=== PATIENT | male | born 1950 | race Caucasian/White ===

== ENCOUNTER 2017-02-19 12:27 | Emergency (ER) | payer MEDICARE ==
[2017-02-19] MEDS ORDERED: Aspirin Low Dose CHEW TAB* 81 MG PO ONE (12:51)
[2017-02-19 13:16] LABS: Hematocrit 42 % (42-52); Hemoglobin 14.2 g/dl (14.0-18.0); Mean Corpuscular HGB Conc 34 g/dl (31-36); Mean Corpuscular Hemoglobin 29 pg (27-31); Mean Corpuscular Volume 87 fL (80-94); Mean Platelet Volume 9 um3 (7.4-10.4); Red Blood Count 4.88 10^6/ul (4.0-5.4); Red Cell Distribution Width 14 % (10.5-15); White Blood Count 6.8 10^3/ul (3.5-10.8)
--- NOTE | 2017-02-19 13:22 | RAD ---
INDICATION: Chest pain. COMPARISON: Comparison is made with a prior study from June 04, 2013. TECHNIQUE: A portable view of the chest was obtained. FINDINGS: Cardiac and mediastinal contours appear to be within normal limits. The lungs are clear. No pleural effusion is seen. IMPRESSION: NO EVIDENCE FOR ACUTE DISEASE.
[2017-02-19 13:41] LABS: Albumin 3.9 g/dL (3.2-5.2); BUN/Creatinine Ratio 13.7 (8-20); Calcium 9.1 mg/dL (8.6-10.3); EGFR Non-African American 73.1 (>60); Globulin 2.6 g/dL (2-4); Magnesium 1.9 mg/dL (1.9-2.7); Potassium 3.8 mmol/L (3.5-5.0); Total Bilirubin 0.5 mg/dL (0.2-1.0); Total Protein 6.5 g/dL (6.4-8.9)
[2017-02-19 16:14] VITALS: BP 129/70
--- NOTE | 2017-02-19 22:46 | ED ---
Federico Griffin Benjamin, scribed for Mario Elmore MD on 02/19/17 at 1454 . HPI Chest Pain - HPI Summary HPI Summary: 66yo male c/o chest tightness for couple of weeks. Pt states that tightness comes on every now and then, but quite regularly. Dr. Ocampo, pts PCP recommended pt to come to ED after noticing PVCs on his EKG. Pt says he gets tired frequently. Pt didnt notice anything that triggers his chest tightness. Hx of peripheral neuropathy. FHx of [place]. Hx of HTN and hypercholesterolemia. - History of Current Complaint Chief Complaint: EDChestPainROMI Time Seen by Provider: 02/19/17 13:20 Hx Obtained From: Patient Onset/Duration: Started Weeks Ago, Still Present Timing: Intermittent Initial Severity: Mild Current Severity: Mild Pain Intensity: 0 Chest Pain Location: Diffuse Chest Pain Radiates: No Character: Tightness Aggravating Factor(s): Nothing Alleviating Factor(s): Nothing Associated Signs and Symptoms: Positive: Other: - fatigue - Allergy/Home Medications Allergies/Adverse Reactions: Allergies Allergy/AdvReac Type Severity Reaction Status Date / Time Penicillins Allergy Severe Hives Verified 02/19/17 12:29 Prochlorperazine Allergy Unknown Anaphylatic Verified 02/19/17 12:29 [From Compazine] Shock Home Medications: Home Medications [place]-3 Fatty Acids (Nf) [Fish Oil (NF)] 1,000 mg PO DAILY 02/19/17 [History Confirmed 02/19/17] Omeprazole CAP* [Prilosec CAP* 20 MG] 20 mg PO DAILY 02/19/17 [History Confirmed 02/19/17] Vitamin B Complex CAP* [B Complex CAP*] 1 cap PO DAILY 02/19/17 [History Confirmed 02/19/17] PMH/Surg Hx/FS Hx/Imm Hx Endocrine/Hematology History: Denies: Hx Diabetes Cardiovascular History: Reports: Hx Hypercholesterolemia - DYSLIPIDEMIA, Hx Hypertension, Other Cardiovascular Problems/Disorders - JES SYNDROME Denies: Hx Pacemaker/ICD Respiratory History: Denies: Hx Asthma, Hx Chronic Obstructive Pulmonary Disease (COPD) History: Reports: Other Problems/Disorders - MACROHEMATURIA Denies: Hx Dialysis, Hx Renal Disease Musculoskeletal History: Reports: Hx Back Problems - LUMBAR LAMINECTOMY Sensory History: Reports: Hx Contacts or Glasses Denies: Hx Hearing Aid Opthamlomology History: Reports: Hx Contacts or Glasses Neurological History: Reports: Other Neuro Impairments/Disorders - LUMBAR LAMINECTOMY WITH LOWER EXTREMITY NEUROPATHY Psychiatric History: Reports: Hx Depression Denies: Hx Anxiety, Hx Attention Deficit Hyperactivity Disorder, Hx Eating Disorder, Hx Panic Disorder, Hx Post Traumatic Stress Disorder, Hx Inpatient Treatment, Hx Community Mental Health Tx, Hx Schizophrenia, Hx Bipolar Disorder , Hx Suicide Attempt, Hx of Violent Episodes Against Others, Hx Substance Abuse , Other Psychiatric Issues/Disorders - Surgical History Surgery Procedure, Year, and Place: PLASTIC SURGERY LEFT HAND, LAMINECTOMY LOW BACK 2009, [facility] 50+ YEARS AGO Hx Anesthesia Reactions: No - Immunization History Date of Tetanus Vaccine: Up to date Date of Influenza Vaccine: None in last years Infectious Disease History: Yes Infectious Disease History: Denies: Traveled Outside the [place] in Last 30 Days - Family History Known Family History: Positive: Cardiac Disease - [place] Negative: Diabetes - Social History Occupation: Unemployed Lives: With Family Substance Use Type: Reports: Marijuana Review of Systems Constitutional: Negative Eyes: Negative ENT: Negative Positive: Other - chest tightness Respiratory: Negative Gastrointestinal: Negative Genitourinary: Negative Musculoskeletal: Negative Skin: Negative Neurological: Negative Psychological: Normal All Other Systems Reviewed And Are Negative: Yes Physical Exam Triage Information Reviewed: Yes Vital Signs On Initial Exam: Initial Vitals Temp Pulse Resp BP Pulse Ox 96.9 F 66 16 142/69 100 02/19/17 12:29 02/19/17 12:29 02/19/17 12:29 02/19/17 12:29 02/19/17 12:29 Vital Signs Reviewed: Yes Appearance: Positive: Well-Appearing, No Pain Distress, Well-Nourished Skin: Positive: Warm, Skin Color Reflects Adequate Perfusion, Dry Head/Face: Positive: Normal Head/Face Inspection Eyes: Positive: EOMI, MARISA ENT: Positive: Normal ENT inspection, Hearing grossly normal, Pharynx normal, TMs normal Neck: Positive: Supple, Nontender Respiratory/Lung Sounds: Positive: Clear to Auscultation, Breath Sounds Present Cardiovascular: Positive: IRR Abdomen Description: Positive: Nontender, No Organomegaly, Soft Bowel Sounds: Positive: Present Musculoskeletal: Positive: Normal, Strength/ROM Intact Neurological: Positive: Sensory/Motor Intact, Alert, Oriented to Person Place, Time, CN Intact II-III Psychiatric: Positive: Affect/Mood Appropriate Diagnostics - Vital Signs Vital Signs Temp Pulse Resp BP Pulse Ox 02/19/17 12:29 96.9 F 66 16 142/69 100 - Laboratory Lab Results: Lab Results 02/19/17 02/19/17 02/19/17 Range/Units 13:05 13:05 13:05 WBC 6.8 (3.5-10.8) 10^3/ul RBC 4.88 (4.0-5.4) 10^6/ul Hgb 14.2 (14.0-18.0) g/dl Hct 42 (42-52) % MCV 87 (80-94) fL MCH 29 (27-31) pg MCHC 34 (31-36) g/dl RDW 14 (10.5-15) % Plt Count 196 (150-450) 10^3/ul MPV 9 (7.4-10.4) um3 Neut % (Auto) 61.1 (38-83) % Lymph % (Auto) 22.7 L (25-47) % [place] % (Auto) 11.4 H (1-9) % Eos % (Auto) 3.4 (0-6) % Baso % (Auto) 1.4 (0-2) % Absolute Neuts (auto) 4.2 (1.5-7.7) 10^3/ul Absolute Lymphs (auto) 1.5 (1.0-4.8) 10^3/ul Absolute Monos (auto) 0.8 (0-0.8) 10^3/ul Absolute Eos (auto) 0.2 (0-0.6) 10^3/ul Absolute Basos (auto) 0.1 (0-0.2) 10^3/ul Absolute Nucleated RBC 0 10^3/ul Nucleated RBC % 0 INR (Anticoag Therapy) 1.07 (0.89-1.11) Sodium 127 L (133-145) mmol/L Potassium 3.8 (3.5-5.0) mmol/L Chloride 96 L (101-111) mmol/L Carbon Dioxide 24 (22-32) mmol/L Anion Gap 7 (2-11) mmol/L BUN 14 (6-24) mg/dL Creatinine 1.02 (0.67-1.17) mg/dL Est GFR ( Amer) 94.0 (>60) Est GFR (Non-Af Amer) 73.1 (>60) BUN/Creatinine Ratio 13.7 (8-20) Glucose 88 (70-100) mg/dL Lactic Acid (0.5-2.0) mmol/L Calcium 9.1 (8.6-10.3) mg/dL Magnesium 1.9 (1.9-2.7) mg/dL Total Bilirubin 0.50 (0.2-1.0) mg/dL AST 25 (13-39) U/L ALT 14 (7-52) U/L Alkaline Phosphatase 48 (34-104) U/L Troponin I 0.00 (<0.04) ng/mL B-Natriuretic Peptide ( - 100) pg/mL Total Protein 6.5 (6.4-8.9) g/dL Albumin 3.9 (3.2-5.2) g/dL Globulin 2.6 (2-4) g/dL Albumin/Globulin Ratio 1.5 (1-3) 02/19/17 02/19/17 Range/Units 13:05 13:05 WBC (3.5-10.8) 10^3/ul RBC (4.0-5.4) 10^6/ul Hgb (14.0-18.0) g/dl Hct (42-52) % MCV (80-94) fL MCH (27-31) pg MCHC (31-36) g/dl RDW (10.5-15) % Plt Count (150-450) 10^3/ul MPV (7.4-10.4) um3 Neut % (Auto) (38-83) % Lymph % (Auto) (25-47) % [place] % (Auto) (1-9) % Eos % (Auto) (0-6) % Baso % (Auto) (0-2) % Absolute Neuts (auto) (1.5-7.7) 10^3/ul Absolute Lymphs (auto) (1.0-4.8) 10^3/ul Absolute Monos (auto) (0-0.8) 10^3/ul Absolute Eos (auto) (0-0.6) 10^3/ul Absolute Basos (auto) (0-0.2) 10^3/ul Absolute Nucleated RBC 10^3/ul Nucleated RBC % INR (Anticoag Therapy) (0.89-1.11) Sodium (133-145) mmol/L Potassium (3.5-5.0) mmol/L Chloride (101-111) mmol/L Carbon Dioxide (22-32) mmol/L Anion Gap (2-11) mmol/L BUN (6-24) mg/dL Creatinine (0.67-1.17) mg/dL Est GFR ( Amer) (>60) Est GFR (Non-Af Amer) (>60) BUN/Creatinine Ratio (8-20) Glucose (70-100) mg/dL Lactic Acid 1.1 (0.5-2.0) mmol/L Calcium (8.6-10.3) mg/dL Magnesium (1.9-2.7) mg/dL Total Bilirubin (0.2-1.0) mg/dL AST (13-39) U/L ALT (7-52) U/L Alkaline Phosphatase (34-104) U/L Troponin I (<0.04) ng/mL B-Natriuretic Peptide 18 ( - 100) pg/mL Total Protein (6.4-8.9) g/dL Albumin (3.2-5.2) g/dL Globulin (2-4) g/dL Albumin/Globulin Ratio (1-3) Result Diagrams: 02/19/17 13:05 02/19/17 13:05 Lab Statement: Any lab studies that have been ordered have been reviewed, and results considered in the medical decision making process. - Radiology CXR Xray Interpretation: No Acute Changes Radiology Interpretation Completed By: Radiologist - EKG 1238 Cardiac Rate: NL - 84bpm EKG Rhythm: Sinus Rhythm Ectopy: PVCs - multifocal PVCs EKG Interpretation: bigeminy Chest Pain Course/Dx - Course Course Of Treatment: Drs. Bullard, Antoine and myself all wanted (and advised) Mr. Ledezma to stay in the hospital for a stress test because of his symptoms, risk factors and bigeminy. He was adamant about going home and understood the risks. [facility] will try to get him an outpatient stress MARY and he will return if he worsens. - Diagnoses Provider Diagnoses: Chest pain, Bigeminal rhythm - Provider Notifications Discussed Care Of Patient With: Dr. Bullard (cardio) @[phone]. DR. Schultz ( Hospitalist) @[id number]. Discharge - Discharge Plan Condition: Stable Disposition: HOME Patient Education Materials: Premature Ventricular Contractions (ED) Referrals: Lola Ocampo MD [Primary Care Provider] - Additional Instructions: FOLLOW UP WITH [facility] TOMORROW FOR A STRESS TEST. The documentation as recorded by the Federico mcdonald Benjamin accurately reflects the service I personally performed and the decisions made by me, Mario Elmore MD.
== END 2017-02-19 16:09 | disposition home or self-care (01) ==
LOC: ED 12:27
DX: R07.9 Chest pain, unspecified (principal); R53.83 Other fatigue; R00.8 Other abnormalities of heart beat
CPT/HCPCS: 36415; 71010; 80053; 83605; 83735; 83880; 84484; 85025; 85610; 86803; 93005; 99282; A9270-GY

== ENCOUNTER 2017-02-28 13:04 | Emergency (ER) | payer MEDICARE ==
[2017-02-28] MEDS ORDERED: Aspirin Low Dose CHEW TAB* 81 MG PO ONE (14:17)
[2017-02-28 14:38] LABS: Hematocrit 39 % (42-52); Hemoglobin 12.8 g/dl (14.0-18.0); Mean Corpuscular HGB Conc 33 g/dl (31-36); Mean Corpuscular Hemoglobin 29 pg (27-31); Mean Corpuscular Volume 89 fL (80-94); Mean Platelet Volume 9 um3 (7.4-10.4); Red Cell Distribution Width 14 % (10.5-15); White Blood Count 7.4 10^3/ul (3.5-10.8)
[2017-02-28 14:54] LABS: Albumin 3.7 g/dL (3.2-5.2); BUN/Creatinine Ratio 17.6 (8-20); Calcium 8.9 mg/dL (8.6-10.3); EGFR Non-African American 73.1 (>60); Globulin 2.4 g/dL (2-4); Potassium 4.1 mmol/L (3.5-5.0); Total Bilirubin 0.3 mg/dL (0.2-1.0); Total Protein 6.1 g/dL (6.4-8.9)
--- NOTE | 2017-02-28 14:58 | RAD ---
HISTORY: Chest pain COMPARISONS: February 19, 2017 VIEWS:1: Single frontal portable view of the chest at 2:35 PM FINDINGS: LINES AND TUBES: None. CARDIOMEDIASTINAL SILHOUETTE: The cardiomediastinal silhouette is normal for portable technique. PLEURA: The costophrenic angles are sharp. No pleural abnormalities are noted. LUNG PARENCHYMA: The lungs are clear. ABDOMEN: The upper abdomen is clear. There is no subphrenic gas. BONES AND SOFT TISSUES: No bone or soft tissue abnormalities are noted. IMPRESSION: NO ACTIVE CARDIOPULMONARY DISEASE.
[2017-02-28 15:33] LABS: T4 5.51 g/dL (6.09-12.23)
[2017-02-28 15:34] LABS: TSH (Thyroid Stimulating Horm) 1.72 mcIU/mL (0.34-5.60)
[2017-02-28 18:39] VITALS: BP 153/81
--- NOTE | 2017-03-01 07:43 | ED ---
Salbador Griffin Matthew, scribed for Florin Horta MD on 02/28/17 at 1351 . HPI Chest Pain - HPI Summary HPI Summary: A 66 y/o male presents to the ED with chest pain since 11:00 today. The pain is rated 1/10 in severity and described as pressure. 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 Associated symptoms include lightheadedness and shakiness. The patient denies nausea, vomiting, and SOB - no more than normal. The patient has a stress test schedule for tomorrow at [facility]. Also a week ago the patient came to the ED for chest pain, but decline staying overnight for a stress test at that time. Per the , the patient's also been having a cough at night. - History of Current Complaint Chief Complaint: EDChestPainROMI Time Seen by Provider: 02/28/17 13:43 Hx Obtained From: Patient Onset/Duration: Started Hours Ago, Atraumatic, Still Present Time of Onset: 11:00 Timing: Constant Initial Severity: Mild Current Severity: Mild Pain Intensity: 1 Pain Scale Used: 0-10 Numeric Chest Pain Radiates: No Character: Pressure/Squeezing Associated Signs and Symptoms: Positive: Chest Pain, Lightheadedness, Cough - at night, Other: - Shakiness. Negative: Shortness of Breath, Nausea, Vomiting - Allergy/Home Medications Allergies/Adverse Reactions: Allergies Allergy/AdvReac Type Severity Reaction Status Date / Time Penicillins Allergy Severe Hives Verified 02/28/17 13:14 Clopidogrel [From Plavix] Allergy Intermediate Nausea Verified 02/28/17 14:55 Prochlorperazine Allergy Unknown Anaphylatic Verified 02/28/17 13:14 [From Compazine] Shock Atorvastatin AdvReac Intermediate See Comment Verified 02/28/17 14:55 PMH/Surg Hx/FS Hx/Imm Hx Endocrine/Hematology History: Denies: Hx Diabetes Cardiovascular History: Reports: Hx Hypercholesterolemia - DYSLIPIDEMIA, Hx Hypertension, Other Cardiovascular Problems/Disorders - JES SYNDROME Denies: Hx Pacemaker/ICD Respiratory History: Denies: Hx Asthma, Hx Chronic Obstructive Pulmonary Disease (COPD) History: Reports: Other Problems/Disorders - MACROHEMATURIA Denies: Hx Dialysis, Hx Renal Disease Musculoskeletal History: Reports: Hx Back Problems - LUMBAR LAMINECTOMY Sensory History: Reports: Hx Contacts or Glasses Denies: Hx Hearing Aid Opthamlomology History: Reports: Hx Contacts or Glasses Neurological History: Reports: Other Neuro Impairments/Disorders - LUMBAR LAMINECTOMY WITH LOWER EXTREMITY NEUROPATHY Psychiatric History: Reports: Hx Depression Denies: Hx Anxiety, Hx Attention Deficit Hyperactivity Disorder, Hx Eating Disorder, Hx Panic Disorder, Hx Post Traumatic Stress Disorder, Hx Inpatient Treatment, Hx Community Mental Health Tx, Hx Schizophrenia, Hx Bipolar Disorder , Hx Suicide Attempt, Hx of Violent Episodes Against Others, Hx Substance Abuse , Other Psychiatric Issues/Disorders - Surgical History Surgery Procedure, Year, and Place: PLASTIC SURGERY LEFT HAND, LAMINECTOMY LOW BACK 2009, [place] 50+ YEARS AGO Hx Anesthesia Reactions: No - Immunization History Date of Tetanus Vaccine: Up to date Date of Influenza Vaccine: None in last years Infectious Disease History: No Infectious Disease History: Denies: Traveled Outside the [place] in Last 30 Days - Family History Known Family History: Positive: Cardiac Disease - [place] Negative: Diabetes - Social History Alcohol Use: Weekly Substance Use Type: Reports: Marijuana Smoking Status (MU): Never Smoked Tobacco Review of Systems Constitutional: Other - shakiness Eyes: Negative ENT: Negative Positive: Chest Pain Positive: Cough - at night . Negative: Shortness Of Breath Gastrointestinal: Negative Negative: Vomiting, Nausea Genitourinary: Negative Musculoskeletal: Negative Skin: Negative Neurological: Other - lightheadedness Psychological: Normal All Other Systems Reviewed And Are Negative: Yes Physical Exam - Summary Physical Exam Summary: VITAL SIGNS: Reviewed. GENERAL: Patient is a well developed and nourished male who is lying comfortable in the stretcher. Patient is not in any acute respiratory distress. HEAD AND FACE: No signs of trauma. No ecchymosis, hematomas or skull depressions. No sinus tenderness. EYES: PERRLA, EOMI x 2, No injected conjunctiva, no nystagmus. EARS: Hearing grossly intact. Ear canals and tympanic membranes are within normal limits. MOUTH: Oropharynx within normal limits. NECK: Supple, trachea is midline, no adenopathy, no JVD, no carotid bruit, no c- spine tenderness, neck with full ROM. CHEST: Symmetric, no tenderness at palpation LUNGS: Clear to auscultation bilaterally. No wheezing or crackles. CVS: Regular rate and rhythm, S1 and S2 present, no murmurs or gallops appreciated. ABDOMEN: Soft, non-tender. No signs of distention. No rebound no guarding, and no masses palpated. Bowel sounds are normal. EXTREMITIES: FROM in all major joints, no edema, no cyanosis or clubbing. NEURO: Alert and oriented x 3. No acute neurological deficits. Speech is normal and follows commands. SKIN: Dry and warm Triage Information Reviewed: Yes Vital Signs On Initial Exam: Initial Vitals Temp Pulse Resp BP Pulse Ox 98.1 F 51 16 145/55 100 02/28/17 13:14 02/28/17 13:14 02/28/17 13:14 02/28/17 13:14 02/28/17 13:14 Vital Signs Reviewed: Yes Diagnostics - Vital Signs Vital Signs Temp Pulse Resp BP Pulse Ox 02/28/17 13:14 98.1 F 51 16 145/55 100 - Laboratory Lab Results: Lab Results 02/28/17 02/28/17 02/28/17 Range/Units 14:25 14:25 14:25 WBC 7.4 (3.5-10.8) 10^3/ul RBC 4.40 (4.0-5.4) 10^6/ul Hgb 12.8 L (14.0-18.0) g/dl Hct 39 L (42-52) % MCV 89 (80-94) fL MCH 29 (27-31) pg MCHC 33 (31-36) g/dl RDW 14 (10.5-15) % Plt Count 277 (150-450) 10^3/ul MPV 9 (7.4-10.4) um3 Neut % (Auto) 61.0 (38-83) % Lymph % (Auto) 25.8 (25-47) % [place] % (Auto) 8.1 (1-9) % Eos % (Auto) 3.0 (0-6) % Baso % (Auto) 2.1 H (0-2) % Absolute Neuts (auto) 4.5 (1.5-7.7) 10^3/ul Absolute Lymphs (auto) 1.9 (1.0-4.8) 10^3/ul Absolute Monos (auto) 0.6 (0-0.8) 10^3/ul Absolute Eos (auto) 0.2 (0-0.6) 10^3/ul Absolute Basos (auto) 0.2 (0-0.2) 10^3/ul Absolute Nucleated RBC 0 10^3/ul Nucleated RBC % 0 INR (Anticoag Therapy) (0.89-1.11) Sodium 137 (133-145) mmol/L Potassium 4.1 (3.5-5.0) mmol/L Chloride 105 (101-111) mmol/L Carbon Dioxide 26 (22-32) mmol/L Anion Gap 6 (2-11) mmol/L BUN 18 (6-24) mg/dL Creatinine 1.02 (0.67-1.17) mg/dL Est GFR ( Amer) 94.0 (>60) Est GFR (Non-Af Amer) 73.1 (>60) BUN/Creatinine Ratio 17.6 (8-20) Glucose 99 (70-100) mg/dL Lactic Acid 1.2 (0.5-2.0) mmol/L Calcium 8.9 (8.6-10.3) mg/dL Magnesium 2.0 (1.9-2.7) mg/dL Total Bilirubin 0.30 (0.2-1.0) mg/dL AST 21 (13-39) U/L ALT 14 (7-52) U/L Alkaline Phosphatase 45 (34-104) U/L Total Creatine Kinase 86 (10-223) U/L CK-MB (CK-2) 4.2 (0.6-6.3) ng/mL Troponin I 0.00 (<0.04) ng/mL B-Natriuretic Peptide ( - 100) pg/mL Total Protein 6.1 L (6.4-8.9) g/dL Albumin 3.7 (3.2-5.2) g/dL Globulin 2.4 (2-4) g/dL Albumin/Globulin Ratio 1.5 (1-3) TSH 1.72 (0.34-5.60) mcIU/mL Thyroxine (T4) 5.51 L (6.09-12.23) g/dL 02/28/17 02/28/17 Range/Units 14:25 14:25 WBC (3.5-10.8) 10^3/ul RBC (4.0-5.4) 10^6/ul Hgb (14.0-18.0) g/dl Hct (42-52) % MCV (80-94) fL MCH (27-31) pg MCHC (31-36) g/dl RDW (10.5-15) % Plt Count (150-450) 10^3/ul MPV (7.4-10.4) um3 Neut % (Auto) (38-83) % Lymph % (Auto) (25-47) % [place] % (Auto) (1-9) % Eos % (Auto) (0-6) % Baso % (Auto) (0-2) % Absolute Neuts (auto) (1.5-7.7) 10^3/ul Absolute Lymphs (auto) (1.0-4.8) 10^3/ul Absolute Monos (auto) (0-0.8) 10^3/ul Absolute Eos (auto) (0-0.6) 10^3/ul Absolute Basos (auto) (0-0.2) 10^3/ul Absolute Nucleated RBC 10^3/ul Nucleated RBC % INR (Anticoag Therapy) 1.02 (0.89-1.11) Sodium (133-145) mmol/L Potassium (3.5-5.0) mmol/L Chloride (101-111) mmol/L Carbon Dioxide (22-32) mmol/L Anion Gap (2-11) mmol/L BUN (6-24) mg/dL Creatinine (0.67-1.17) mg/dL Est GFR ( Amer) (>60) Est GFR (Non-Af Amer) (>60) BUN/Creatinine Ratio (8-20) Glucose (70-100) mg/dL Lactic Acid (0.5-2.0) mmol/L Calcium (8.6-10.3) mg/dL Magnesium (1.9-2.7) mg/dL Total Bilirubin (0.2-1.0) mg/dL AST (13-39) U/L ALT (7-52) U/L Alkaline Phosphatase (34-104) U/L Total Creatine Kinase (10-223) U/L CK-MB (CK-2) (0.6-6.3) ng/mL Troponin I (<0.04) ng/mL B-Natriuretic Peptide 113 H ( - 100) pg/mL Total Protein (6.4-8.9) g/dL Albumin (3.2-5.2) g/dL Globulin (2-4) g/dL Albumin/Globulin Ratio (1-3) TSH (0.34-5.60) mcIU/mL Thyroxine (T4) (6.09-12.23) g/dL Result Diagrams: 02/28/17 14:25 02/28/17 14:25 Lab Statement: Any lab studies that have been ordered have been reviewed, and results considered in the medical decision making process. - Radiology CXR Xray Interpretation: No Acute Changes - IMPRESSION: NO ACTIVE CARDIOPULMONARY DISEASE. Radiology Interpretation Completed By: Radiologist - EKG 13:09 Cardiac Rate: NL - 68 bpm EKG Rhythm: Sinus Rhythm EKG Interpretation: NO ST elevation EKG Comparison: No Significant Change - 07/11/13 Chest Pain Course/Dx - Course Assessment/Plan: A 66 y/o male presents to the ED with chest pain since 11:00 today. The pain is rated 1/10 in severity and described as pressure. 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 Associated symptoms include lightheadedness and shakiness. The patient denies nausea, vomiting, and SOB - no more than normal. The patient has a stress test schedule for tomorrow at [facility]. Also a week ago the patient came to the ED for chest pain, but decline staying overnight for a stress test at that time. Per the , the patient's also been having a cough at night. Test results shows chronic anemia, BNP is 113, T4 is 5.51. CXR shows no active cardiopulmonary disease. EKG shows NSR with no ST elevation and similar to EKG done on 07/11/13. The patient is schedule to have a stress test tomorrow. I offered the patient to stay overnight until he has had the stress test; however, he does not want to stay. Hes asymptomatic with no dizziness, chest pain, or SOB. I believe the patient is dealing with stable angina therefore he was recommended not to do any exertion until after seeing cardiology. Patient understands and agrees and will follow-up with cardiology. I discussed all the findings and test results with the patient. Patient was instructed to return to the emergency room immediately if any of the symptoms return or worsens. Plan of care was discussed with the patient and understands and agrees. All questions were answered at patient satisfaction. There were no further complaints or concerns. Lung exam before discharge: CTA B/L. Good air exchange. No wheezing or crackles heard. CVS: S1 and S2 present. No murmurs appreciated. Patient is alert and oriented x 3. Patient is hemodynamically stable. Patient will be discharged home with follow up PCP in the next 2-3 days - Chest Pain Differential Diagnosis/HQI/PQRI: Acute [place], ACS, Angina, CHF, Chest Wall, GI Disease - Diagnoses Provider Diagnoses: Stable angina, Chest pain Discharge - Discharge Plan Condition: Stable Disposition: HOME Patient Education Materials: Angina (ED), Chest Pain (ED) Referrals: Lola Ocampo MD [Primary Care Provider] - 3 Days Jodi Interiano MD [Medical Doctor] - 2 Days Additional Instructions: Please follow-up with your primary care physician and Dr. Interiano. The documentation as recorded by the Salbador mcdonald Matthew accurately reflects the service I personally performed and the decisions made by , Florin Horta MD.
== END 2017-02-28 18:37 | disposition home or self-care (01) ==
LOC: ED 13:04
DX: I20.9 Angina pectoris, unspecified (principal); E78.5 Hyperlipidemia, unspecified; I10 Essential (primary) hypertension; F32.9 Major depressive disorder, single episode, unspecified; Z88.0 Allergy status to penicillin; Q79.8 Other congenital malformations of musculoskeletal system
CPT/HCPCS: 36415; 71010; 80053; 82550; 82553; 83605; 83735; 83880; 84436; 84443; 84484; 85025; 85610; 93005